=== PATIENT | female | born 1970 | race Caucasian/White ===

== ENCOUNTER 2018-10-11 20:49 | Emergency (ER) | payer BC, SELFPAY ==
--- NOTE | 2018-10-11 21:02 | ED.GENADUL_ITS ---
Discharge Plan Disposition Patient Disposition: HOME Condition: Good Discharge Details Chief Complaint: Urinary Clinical Impression: UTI (urinary tract infection), Hematuria Primary Care Provider: April Bustos ED Provider: Stef Knott Home Meds and New Rx's Prescriptions: New cephalexin 500 mg tablet 500 mg PO BID 5 Days Qty: 10 RF: 0 No Action Ventolin HFA 8 GM HFA aerosol inhaler 2 puff Inhalation Q4H PRN RF: 0 calcium carbonate-vitamin D3 1 EACH tablet 1 ea PO DAILY RF: 0 doxycycline hyclate 50 MG capsule 100 mg PO BID RF: 0 colchicine 0.6 MG capsule 0.6 mg PO DAILY RF: 0 folic acid 1 MG tablet 2 mg PO DAILY RF: 0 Florastor 250 MG capsule 500 mg PO DAILY RF: 0 loratadine [Claritin Liqui-Gel] 10 MG capsule 10 mg PO DAILY RF: 0 Flovent HFA 120 PUFF HFA aerosol inhaler 2 puff Inhalation BID RF: 0 Discharge Instructions Instructions: Urinary Tract Infection in Women (ED) Additional Instructions: Please take the medication as directed. Please drink 8-10 cups of water per day. If you notice improvement of the burning and frequency but have continued blood in your urine please follow-up with your family doctor or your urologist. If you notice any worsening of your symptoms, or any new symptoms such as vomiting, diarrhea, fever, chills, shortness of breath, chest pain, numbness, weakness, or fainting , please return immediately to the emergency department for reevaluation. Please follow up with your primary care provider as soon as possible for reassessment and reevaluation. As always, it was a pleasure participating in your medical care today. Referrals: April Bustos [Primary Care Provider] - Medical Decision Making This is a 48-year-old female with past medical history of HSP, and chronic Lyme as well as chronic/recurrent UTIs who presents today for evaluation of urinary tract infection. Last UTI was this past fall. Patient states that yesterday she had increased urgency, frequency mild dysuria. She denies any fever or chills, vital signs are reassuring. Physical exam shows no evidence of toxic appearance. No evidence of pyelonephritis clinically. We will get a urinalysis, evaluate for potential UTI. I feel that the patient signs and symptoms are clinically inconsistent with a kidney stone at this time, patient does not want anything for pain at this time. 11:29 PM. Urinalysis did show moderate hematuria. Mild evidence of potential urinary tract infection with elevated leukoesterase, and slightly elevated WBCs although this is in the setting of elevated RBCs. He has developed elevated hematuria I am concerned for potential urolithiasis as a cause of her symptoms. We did get a CT scan, results show no acute process, no evidence of stone. Patient's pain continues to be well managed. Given her dose of Keflex here, and I feel that she would benefit from treatment for potential urinary tract infection on an outpatient basis. Differential though does still include interstitial cystitis versus a mild cystitis secondary to her UTI. I discussed with the patient the importance of close follow-up, especially the importance of follow-up with urology if her hematuria. We discussed red flags which return. The patient will be discharged home. She has reassuring vital signs, shows no signs of hemodynamic compromise, and demonstrates no clinical evidence of pyelonephritis or sepsis. I have extensively reviewed the treatment plan and discharge instructions with the patient and their family. I have addressed all patient concerns at this time. The patient and family was made aware of what symptoms to monitor for that would warrant a return to the emergency department. Discussed the plan with the patient and family, they demonstrate verbal understanding and agreement with our assessment and plan at this time. COMPARISON: No relevant prior studies available. FINDINGS: Lower thorax: Unremarkable. ABDOMEN: Liver: No suspicious lesions. Gallbladder and bile ducts: Cholecystectomy. Pancreas: Unremarkable. Spleen: No suspicious lesions. Adrenals: Unremarkable. No suspicious nodule. Kidneys and ureters: Unremarkable. No hydro. No suspicious lesions. Stomach and bowel: Unremarkable. No inflammed or dilated loops. Appendix: Normal appendix. PELVIS: Bladder: Unremarkable as visualized. Reproductive: Unremarkable as visualized. ABDOMEN and PELVIS: Intraperitoneal space: No free air. No significant fluid collection. Bones/joints: No acute fracture. No dislocation. Soft tissues: Unremarkable. Vasculature: Unremarkable. Lymph nodes: Unremarkable. IMPRESSION: No acute findings. Dictated and Authenticated by: Aníbal Bullock MD. HPI General Date/Time Provider Initiated Documentation: 10/11/18 20:58 . 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 She states that yesterday she had increased urgency, increased frequency, mild dysuria, and a small amount of blood in her urine. She admits to some mild low back pain but denies any severe flank pain. She denies any acute fever or chills. She states that her symptoms are exactly the same as her previous UTIs that she has had in the past. She denies any history of kidney stones or family history of kidney stones. The pain is located in her lower pelvic region, no significant aggravating or relieving factors. Patient denies any other complaints at this time. She denies any recent surgeries, pertinent family history, Related Data Home Medications Medication Instructions Recorded Confirmed loratadine [Claritin] 10 mg PO DAILY 02/27/13 10/11/18 albuterol sulfate [Ventolin Hfa] 2 puff INHALATION Q4H PRN puff 07/13/13 10/11/18 calcium carbonate-vitamin D3 1 ea PO DAILY 07/17/14 10/11/18 fluticasone [Flovent 220MCG] 2 puff INHALATION BID 03/24/15 10/11/18 Saccharomyces boulardii [Florastor] 500 mg PO DAILY 09/16/17 10/11/18 colchicine 0.6 mg PO DAILY 09/16/17 10/11/18 doxycycline hyclate 100 mg PO BID tab-cap 09/16/17 10/11/18 folic acid 2 mg PO DAILY tab-cap 09/16/17 10/11/18 cephalexin 500 mg PO BID 5 Days #10 tab 10/11/18 Previous Rx's Medication Instructions Recorded cephalexin 500 mg PO BID 5 Days #10 tab 10/11/18 Allergies Allergy/AdvReac Type Severity Reaction Status Date / Time Sulfa (Sulfonamide Allergy Mild Hives Unverified 10/11/18 23:09 Antibiotics) Review of Systems Review of Systems All systems reviewed & are unremarkable except as noted in HPI and below PFSH Medical History Asthma Chronic headaches HSP (Henoch Schonlein purpura) Hx of gallstones Lyme disease Surgical History Breast, Lumpectomy Cervical Procedure section Cholecystectomy wisdom teeth extraction Family History Mother Diverticulitis COPD (chronic obstructive pulmonary disease) Pacemaker Father Essential hypertension Cryptococcal meningitis Hyperlipidemia Social History Smoking/Tobacco Use Status: Never Exam Narrative Exam Narrative: 1.Const: Well-nourished, Well-developed, appearing stated age 2.Eyes: PERRL, no conjunctival injection, and symmetrical lids. 3.ENT: Atraumatic external nose and ears. Moist MM. Neck: Symmetric, trachea m idline, No thyromegaly. 4.CVS: +S1/S2, No murmurs or gallops. Peripheral pulses 2+ and equal in all extremities. Brisk capillary refill in all extremities. 5.RESP: Unlabored respiratory effort. Clear to auscultation bilaterally. No wheezes rales or rhonchi 6.GI: Soft, Nontender/Nondistended, No hepatosplenomegaly. No guarding or rebound. No significant flank pain, or suprapubic pain. 7.MSK: Normocephalic/Atraumatic, Extremities w/o deformity or ttp No cyanosis or clubbing, Normal movement of all extremities 8.Skin: Warm, Dry. No rashes or lesions. 9.Neuro: palliative care specialist II-XII grossly intact. Sensation grossly intact, no focal neurologic deficits. 10.Psych: (AAO) x3. Appropriate mood and affect
[2018-10-11 21:08] VITALS: BP 123/82; PULSE 72; RESP 18; TEMP 36.8
[2018-10-11 21:22] LABS: Bilirubin Negative (Negative); Blood Large (Negative); Clarity Cloudy; Glucose Negative (Negative); Ketones Trace mg/dL (Negative); Leukocyte Esterase Small (Negative); Nitrite Negative (Negative); Specific Gravity 1.025 (1.005-1.025); Urobilinogen 0.2 EU/dL (Up TO 0.2); pH 5.5 (5-8)
[2018-10-11 21:32] LABS: Bacteria Moderate HPF (Negative); C & S Indicated? Yes; Casts Negative LPF (Negative); Crystals Negative HPF (Negative); Epithelial Cells Negative HPF (Negative); Mucus Negative (Negative); Other Cells Negative (Negative); RBC >50 (0-2)
[2018-10-11 22:17] VITALS: BP 123/82; PULSE 72; RESP 18; TEMP 36.8; O2SAT 95
[2018-10-11] MEDS: Cephalexin 500 MG CAP PO (22:30)
--- NOTE | 2018-10-11 23:05 | DI.CT_ITS ---
SYMPTOMS/DIAGNOSIS: RIGHT FLANK PAIN WITH HEMATURIA ABDOMINAL AND PELVIC CT: CT examination of the abdomen and pelvis was performed without contrast administration. Images obtained through the lung bases are unremarkable. The liver, spleen and pancreas have an unremarkable noncontrast appearance. Note is made of a previous cholecystectomy. No biliary dilatation is seen. 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 No evidence of urinary tract calcification or obstruction. Urinary bladder appears unremarkable by noncontrast criteria. Abdominal aorta is of normal diameter. No abdominal or pelvic adenopathy seen. No significant abdominal wall hernia seen. Appendix is normal. No evidence of diverticulitis or bowel obstruction. CONCLUSION: No evidence of acute intraabdominal process.
--- NOTE | 2018-10-11 23:22 | DI.VRAD_ITS ---
EXAM: CT Abdomen and Pelvis Without Contrast EXAM DATE/TIME: 10/11/2018 9:47 PM CLINICAL HISTORY: 48 years old, female; Pain; Abdominal pain; Other: Mid abd and r flank pain; Prior surgery; Surgery date: 6+ months; Surgery type: Cholecystectomy and ; Patient HX: Mid abd and r flank pain with hematuria TECHNIQUE: Axial computed tomography images of the abdomen and pelvis without contrast. All CT scans at this facility use at least one of these dose optimization techniques: automated exposure control; mA and/or kV adjustment per patient size (includes targeted exams where dose is matched to clinical indication); or iterative reconstruction. Coronal and sagittal reformatted images were created and reviewed. COMPARISON: No relevant prior studies available. FINDINGS: Lower thorax: Unremarkable. ABDOMEN: Liver: No suspicious lesions. Gallbladder and bile ducts: Cholecystectomy. Pancreas: Unremarkable. Spleen: No suspicious lesions. Adrenals: Unremarkable. No suspicious nodule. Kidneys and ureters: Unremarkable. No hydro. No suspicious lesions. Stomach and bowel: Unremarkable. No inflammed or dilated loops. Appendix: Normal appendix. PELVIS: Bladder: Unremarkable as visualized. Reproductive: Unremarkable as visualized. ABDOMEN and PELVIS: Intraperitoneal space: No free air. No significant fluid collection. Bones/joints: No acute fracture. No dislocation. Soft tissues: Unremarkable. Vasculature: Unremarkable. Lymph nodes: Unremarkable. IMPRESSION: No acute findings. Dictated and Authenticated by: Aníbal Bullock MD. Ordering:KEYSHA Finch MD
[2018-10-11] MEDS: Cephalexin 500 MG CAP 2000 MG PO (23:26)
[2018-10-11 23:28] VITALS: BP 123/82; PULSE 72; RESP 18; TEMP 36.8; O2SAT 95
== END 2018-10-11 23:32 | disposition home or self-care (01) ==
PROVIDERS: Emergency Provider Student in an Organized Health Care Education/Training Program; PCP Nurse Practitioner
DX: N39.0 Urinary tract infection, site not specified (principal); Z87.440 Personal history of urinary (tract) infections
CPT/HCPCS: 99284; 74176; 81003; 81015; 87086

== ENCOUNTER 2018-11-12 11:49 | Outpatient (REF) | payer BC, SELFPAY ==
--- NOTE | 2018-11-12 10:50 | PAPFT_PTH ---
PATIENT: Bree Ford LOC: [facility] U#:[id number] AGE/SX: 48/F ROOM: RE11/12/[address]: ILSA Elmore : 1970 BED: DIS: 11/12/2018 SPEC #: [id number] RECD: 11/12/18 18:00 STATUS: DANIA REJoelle #: [id number] JONAS: 11/12/18 10:[address]: Marcie Soriano DEPT: [facility] Cytology RECD BY: Vanessa Campuzano ENTERED: 11/12/18 18:00 SP TYPE: PAPFT OTHR DR: April Bustos Tissues: 1 - CX/ENDOCX FOR PAP SMEARS Procedures: PAP THIN PREP/UVM Screening HPV DNA PROBE Comments: [id number]
== END 2018-11-12 12:09 ==
LOC: LBN 11:49
PROVIDERS: PCP Nurse Practitioner; Visit Provider Nurse Practitioner Family
DX: Z12.4 Encounter for screening for malignant neoplasm of cervix (principal); Z11.51 Encounter for screening for human papillomavirus (HPV)
CPT/HCPCS: 88142; 87624

== ENCOUNTER 2018-11-29 00:58 | Outpatient (CLI) | payer BC, SELFPAY ==
--- NOTE | 2018-11-29 10:00 | DI.MAMMO_ITS ---
SYMPTOM/DIAGNOSIS: SCREENING, Z12.31 MAMMOGRAMS: Mammograms were interpreted according to the usual protocol including computer analysis with CAD system, tomosynthesis and C view imaging. Comparison is made with prior examinations. Breast density, category C. No suspicious masses or microcalcifications are seen. There is no definite evidence of malignancy. IMPRESSION: Negative mammogram. Routine screening is recommended. Category 1. MQSA ASSESSMENT OF FINDINGS: Negative. Category 1. Patient will receive a letter notifying them of these results. Bi-RADS category C. The breasts are heterogeneously dense, which may obscure small masses.
== END 2018-11-29 01:18 ==
PROVIDERS: PCP Nurse Practitioner; Visit Provider Nurse Practitioner Family
DX: Z12.31 Encounter for screening mammogram for malignant neoplasm of breast (principal)
CPT/HCPCS: 77063; 77067

== ENCOUNTER 2019-10-20 12:01 | Outpatient (REF) | payer BC, SELFPAY ==
[2019-10-20 19:28] LABS: ALT 68 U/L (14-59); AST 37 U/L (15-37); Alkaline Phosphatase 85 U/L (46-116); BUN 12 mg/dL (7-18); Bilirubin, Total 0.3 mg/dL (0.2-1.0); CREATININE 0.79 mg/dL (0.55-1.02); Calcium 9.3 mg/dL (8.5-10.1); Calculated LDL 91 mg/dL; Chloride 105 mmol/L (98-107); Cholesterol 142 mg/dL (<200); Glucose 89 mg/dL (74-106); HDL Cholesterol 37 mg/dL (40-60); Sodium 144 mmol/L (136-145); TSH (W/Ref FT4) 0.89 uIU/mL (0.36-3.74); Total Protein 7.1 g/dL (6.4-8.2); Triglyceride 71 mg/dL (<150)
[2019-10-20 19:42] LABS: Vitamin D 25 Total 23.5 ng/ml (30-100)
== END 2019-10-20 12:21 ==
LOC: NCHCN 12:01
PROVIDERS: PCP Nurse Practitioner; Visit Provider Nurse Practitioner
DX: Z00.00 Encounter for general adult medical examination without abnormal findings (principal); D69.0 Allergic purpura; A69.20 Lyme disease, unspecified; Z13.21 Encounter for screening for nutritional disorder; Z13.29 Encounter for screening for other suspected endocrine disorder; Z13.220 Encounter for screening for lipoid disorders
CPT/HCPCS: 80053; 80061; 82306; 84443

== ENCOUNTER 2019-12-07 02:22 | Outpatient (CLI) | payer BC, SELFPAY ==
--- NOTE | 2019-12-07 10:50 | DI.MAMMO_ITS ---
EXAM: MG MAMMO SCREENING CLINICAL HISTORY: screening Z12.39. TECHNIQUE: Bilateral full field digital CC and MLO mammographic images were obtained with 3D tomosyn thesis and utilizing computer aided detection (CAD). COMPARISON: Available for comparison. FINDINGS: Masses/Architectural Distortion: None seen. Microcalcifications: No suspicious pleomorphic-type are seen. Skin Thickening/Nipple Retraction: None. IMPRESSION: 1. No significant interval change with no specific features of malignancy noted. 2. Unless there is more urgent need, screening mammography is recommended, as per [employer] guidelines. ACR BI-RAD Category- 1 Negative Breast Density - Category B - Scattered areas of fibroglandular density A negative radiographic report should not delay biopsy if a dominant or clinically suspicious mass is present. Up to ten percent of cancers are not identified on mammography. A negative report may reinforce clinical impression. Adenosis and dense breasts may obscure an underlying neoplasm. False positive reports average 6 to 10%. Patient will receive a letter notifying them of these results.
== END 2019-12-07 02:42 ==
PROVIDERS: PCP Nurse Practitioner; Visit Provider Nurse Practitioner Family
DX: Z12.31 Encounter for screening mammogram for malignant neoplasm of breast (principal)
CPT/HCPCS: 77063; 77067

== ENCOUNTER 2020-05-08 10:15 | Emergency (ER) | payer BC, SELFPAY ==
[2020-05-08 10:20] VITALS: BP 122/65; PULSE 69; RESP 18; TEMP 36.4; O2SAT 98
--- NOTE | 2020-05-08 10:30 | DI.US_ITS ---
EXAM: US LOWER EXTREMITY VENOUS LT CLINICAL HISTORY: Long car ride, now pain and swelling TECHNIQUE: Left lower extremity venous ultrasound performed using grayscale, color-flow, and spectra l Doppler analysis. COMPARISON: No exams were available for comparison FINDINGS: The left common femoral, femoral and popliteal veins demonstrate normal compressibility, augmentation , and color Doppler. The posterior tibial veins are patent. The saphenofemoral junction is unremarka ble. There is no evidence of a Nolan cyst. The soft tissues are unremarkable. IMPRESSION: No DVT. DATA REPOSITORY:
--- NOTE | 2020-05-08 10:58 | ED.GENADUL_ITS ---
Discharge Plan Disposition Patient Disposition: HOME Condition: Stable Discharge Details Chief Complaint: Vascular Clinical Impression: Leg pain Primary Care Provider: April Bustos ED Provider: Henry Zhou Home Meds and New Rx's Prescriptions: No Action albuterol sulfate [Ventolin HFA] 8 GM HFA aerosol inhaler 2 puff Inhalation Q4H PRN RF: 0 Flovent HFA 120 PUFF HFA aerosol inhaler 2 puff Inhalation BID RF: 0 Discharge Instructions Instructions: Leg Pain (ED) Additional Instructions: Ultrasound is negative. Please watch for new or worsening symptoms and return to the ER for any concerns. I recommend cool and/or warm compresses every 2 hours for 20 minutes. Gentle stretching as tolerated. [id number] Tylenol and/or Motrin as directed for discomfort. I do recommend reaching out your primary care provider later today or tomorrow for prompt outpatient reevaluation. Medical Decision Making 49-year-old female presenting for concern of DVT. Took a long car ride on , subsequently developed some pain in her leg. Clinically I do not see any obvious swelling, erythema, warmth. Negative Homans sign. Normal capillary refill and normal pedal pulses. Will obtain ultrasound to rule out potential for DVT but very well could be soft tissue in nature or even a mild phlebitis. Ultrasound by urology as negative. Discussed ultrasound findings with patient. She has no other concerns and is comfortable discharge. Medical Records Medical records reviewed: Yes I reviewed the patient's medical records. HPI General Mode of arrival: ambulatory . Date/Time Provider Initiated Documentation: 05/08/20 10:23 . Limitations to Documentation: no limitations . Information obtained by: patient . HPI Narrative: 49-year-old female with a history of asthma, lung disease, HSP, presents to the ER for concern of left leg DVT. She reports that on she had a long car ride to and from [place], subsequently has developed some discomfort to the left upper leg. She reports the area feels slightly tight and swollen. She denies obvious trauma. Denies pain or swelling to her calf. Pain is mild at rest worse with movement or palpation. Denies history of DVT or PE. Denies redness or fever. No additional concerns or complaints. Related Data Home Medications Medication Instructions Recorded Confirmed albuterol sulfate [Ventolin Hfa] 2 puff INHALATION Q4H PRN puff 07/13/13 05/08/20 fluticasone propionate [Flovent 2 puff INHALATION BID 03/24/15 11/12/18 220MCG] Allergies Allergy/AdvReac Type Severity Reaction Status Date / Time Sulfa (Sulfonamide Allergy Mild Hives Verified 05/08/20 10:26 Antibiotics) ciprofloxacin Allergy Skin Rash Verified 05/08/20 10:26 General Stated Complaint: Vascular LUIS: 3 Review of Systems Constitutional Constitutional: Denies fever(s) and Denies weakness Cardiovascular Cardiovascular: Denies chest pain and Denies dyspnea Respiratory Respiratory: Denies cough and Denies dyspnea Musculoskeletal Musculoskeletal: Denies back pain, Denies arthralgias, Denies numbness and Denies tingling Integumentary/Breasts Skin/Breast: Denies rash Neurologic Neurologic: Denies numbness, Denies tingling and Denies weakness [facility] Medical History Asthma (Acute) environmental Chronic headaches (Resolved) HSP (Henoch Schonlein purpura) (Acute) Hx of gallstones (Resolved) Lyme disease (Acute) 11/2016 Surgical History Breast, Lumpectomy Left, 2012 Cervical Procedure abnormal pap in 1998 section 2002, 2008 Cholecystectomy 2003 wisdom teeth extraction 1986 Family History Mother , COPD at age 65. Diverticulitis COPD (chronic obstructive pulmonary disease) Pacemaker Father Essential hypertension Cryptococcal meningitis Hyperlipidemia Heart disease Heart attack, Aortic aneurysm, multiple strokes Maternal Aunt Ovarian cancer Paternal Aunt Renal cell cancer Social History Smoking/Tobacco Use Status: Never Alcohol Intake: never Drug use: Never Household members: spouse and children Number of Children: 2 current occupation: Administrative Do you feel safe at home: Yes Do you feel safe in your relationship?: Yes Female Reproductive History Menstrual Menopause type: natural History History 2 Para 2 Hx # Term Pregnancies 2 Multiple births Hx # Pregnancies Ectopic pregnancies AB induced Hx Number of Living Children 2 AB spontaneous Exam Const General: cooperative, healthy appearing, comfortable and no acute distress Orientation: alert and awake HENMT Head: normal to inspection, normocephalic and atraumatic Mouth: moist mucous membranes Eyes Conjunctivae: conjunctivae normal Neck Neck: normal visual inspection, trachea midline and supple Resp Effort & Inspection: normal respiratory effort and able to speak in complete sentences Cardio Rate: regular rate Rhythm: regular rhythm Skin General skin exam: no rashes or lesions noted Neuro General: patient alert, patient awake, moves all extremities and no focal motor deficits Gait: normal gait Sensory Exam: no sensory deficits noted Extrem General: normal to inspection, full ROM, capillary refill normal, no pedal edema and no calf tenderness Right lower extremity: normal to inspection, full ROM and normal capillary refill Left lower extremity: normal to inspection, full ROM, normal capillary refill and knee (Superior, medial aspect with mild discomfort. No erythema or warmth) Details: tenderness (Mild, superior, medial aspect); no swelling and no unusual warmth Psych Appearance: grossly normal Mental Status: mental status grossly normal Course Vital Signs Vital signs: Vital Signs Temperature 36.4 C L 05/08/20 10:20 Pulse 69 05/08/20 10:20 Respiratory Rate 18 05/08/20 10:20 Blood Pressure 122/65 05/08/20 10:20 Pulse Oximetry 98 05/08/20 10:20 Temperature 36.4 C L 05/08/20 10:20 Temperature Source Temporal Artery Scan 05/08/20 10:20 Pulse 69 05/08/20 10:20 Respiratory Rate 18 05/08/20 10:20 Respiratory Effort Non-Labored 05/08/20 10:28 Respiratory Depth Normal 05/08/20 10:28 Respiratory Pattern Irregular 05/08/20 10:28 Blood Pressure 122/65 05/08/20 10:20 Blood Pressure Position Sitting 05/08/20 10:20 Pulse Oximetry 98 05/08/20 10:20 Oxygen Delivery Method Room Air 05/08/20 10:20 Oxygen Flow Rate 0 05/08/20 10:20 Pain Level 5 05/08/20 10:28
== END 2020-05-08 12:05 | disposition home or self-care (01) ==
PROVIDERS: Emergency Provider Physician Assistant; PCP Nurse Practitioner
DX: M79.605 Pain in left leg (principal)
CPT/HCPCS: 99284; 93971

== ENCOUNTER 2020-12-19 01:25 | Outpatient (CLI) | payer BC, SELFPAY ==
--- NOTE | 2020-12-19 10:50 | DI.MAMMO_ITS ---
EXAM: MG MAMMO SCREENING CLINICAL HISTORY: screening TECHNIQUE: Bilateral full field digital CC and MLO mammographic images were obtained with 3D tomosyn thesis and utilizing computer aided detection (CAD). COMPARISON: Available for comparison. FINDINGS: Masses/Architectural Distortion: None seen. Microcalcifications: No suspicious pleomorphic-type are seen. Skin Thickening/Nipple Retraction: None. IMPRESSION: 1. No significant interval change with no specific features of malignancy noted. 2. Unless there is more urgent need, screening mammography is recommended, as per [place] guidelines. BI-RADS Category 1 - Negative Breast Density - Category B - Scattered areas of fibroglandular density Breast density category C or D implies that the patient has dense breast tissue. Dense breast tissue is very common and is not abnormal but dense breast tissue can make it harder to find cancer on a ma mmogram. Also, dense breast tissue may increase their breast cancer risk. This information about the result of the mammogram report was provided to the patient to raise their awareness. Use this report when you speak with the patient about their risks for breast cancer, which includes their family hist ory. At that time, you may recommend for more screening tests (Ultrasound or MRI) as they might be us eful based on their risk. A negative radiographic report should not delay biopsy if a dominant or clinically suspicious mass is present. Up to ten percent of cancers are not identified on mammography. A negative report may reinforce clinical impression. Adenosis and dense breasts may obscure an underlying neoplasm. False positive reports average 6 to 10%. Patient will receive a letter notifying them of these results.
== END 2020-12-19 01:45 ==
PROVIDERS: PCP Nurse Practitioner; Visit Provider Nurse Practitioner Family
DX: Z12.31 Encounter for screening mammogram for malignant neoplasm of breast (principal)
CPT/HCPCS: 77063; 77067

== ENCOUNTER 2021-09-16 16:09 | Outpatient (REF) | payer BC, SELFPAY ==
[2021-09-16 19:58] LABS: ALT 42 U/L (14-59); AST 23 U/L (15-37); Albumin 4.4 g/dL (3.4-5.0); Alkaline Phosphatase 87 U/L (46-116); Anion Gap 10.9 mmol/L (3-11); BUN 15 mg/dL (7-18); Bilirubin, Total 0.4 mg/dL (0.2-1.0); CO2 25.1 mmol/L (21.0-32.0); CREATININE 0.8 mg/dL (0.55-1.02); Calcium 9.7 mg/dL (8.5-10.1); Calculated LDL 145 mg/dL (<100); Chloride 102 mmol/L (98-107); Cholesterol 223 mg/dL (<200); Glucose 99 mg/dL (74-106); HCT 42.9 % (36.0-46.0); HDL Cholesterol 53 mg/dL (40-60); MCH 28.7 pg (27.0-33.0); MCHC 32.6 % (32.0-36.0); MCV 88.1 fL (80-95); MPV 10.9 fL (8.0-11.0); Platelet Count 265 10^3/uL (130-400); RBC 4.87 10^6/uL (3.93-5.22); RDW 12.4 % (11.7-14.6); RDW-SD 39.7 fL; Sodium 138 mmol/L (136-145); Total Protein 7.8 g/dL (6.4-8.2); Triglyceride 127 mg/dL (<150); WBC 7.11 10^3/uL (4.4-10.8)
== END 2021-09-16 16:10 | disposition home or self-care (01) ==
LOC: NCHCN 16:09
PROVIDERS: PCP Nurse Practitioner; Visit Provider Nurse Practitioner
DX: R53.83 Other fatigue (principal); R79.89 Other specified abnormal findings of blood chemistry; G43.909 Migraine, unspecified, not intractable, without status migrainosus
CPT/HCPCS: 80053; 80061; 85027

== ENCOUNTER 2021-10-08 00:41 | Outpatient (CLI) | payer BC, SELFPAY ==
--- NOTE | 2021-10-08 | ETT_ITS ---
APPROVED REPORT Exam: Exercise Treadmill Patient Location: Out-Patient Room/Bed: Stress Nurse: Luda Garcia RN Ordering Provider:HILARIO TSANG, Contact Number: [phone] BMI: 27.45 Baseline Rhythm: Sinus Rhythm Indications: Atypical chest pain Medical History Medical History: Hyperlipidemia, asthma, chronic HAs, lyme disease, henoch-schonlein purpura Cardiac Medications: Albuterol sulfate Allergies: sulfonamide antibiotics, ciprofloxarin Cardiac Risk Factors: Hyperlipidemia, asthma, family hx Previous Cardiac Procedures: None Pretest Chest Pain Characteristics: None Exercise History: Sedentary Physical Disabilities: None Lung Sounds: Clear to auscultation Heart Sounds: Regular Stress Test Details Test: Exercise stress testing was performed using a Jak protocol. Rest Stress HR Resting HR Supine: 66 bpm Max Heart Rate (APMHR): 168 bpm Resting HR Standin bpm Target HR (85% APMHR): 142 bpm Max HR Achieved: 171 bpm % of APMHR: 101 Recovery HR: 91 bpm HR response to stress: Normal HR response to stress BP Resting BP Supine: 110/78 mmHg Resting BP Standin/72 mmHg Max BP: 152/72 mmHg Recovery BP: 128/74 mmHg BP response to stress: Normal blood pressure response to stress. ECG Resting ECG: Sinus Rhythm Ectopy: None Stress ECG: Sinus Tachycardia ST Change: No significant ST segment changes noted Arrhythmia: None Recovery ECG: Sinus Rhythm Recovery ST Change: No significant ST segment changes noted Recovery Arrhythmia: None Clinical Reason for Termination: Fatigue Stress Symptoms: General Fatigue, Dyspnea Exercise duration: 10 min46 sec Highest Stage Reached: Stage 4: 4.2 mph at 16% grade. Exercise capacity: 13.07 METs Galindo Treadmill Score: 10.5 Rate Pressure Product: [id number] Stress ECG Conclusion 1. The resting electrocardiogram was within normal limits 2. Patient exercised on the Jak protocol and completed a workload of 13.07 METS, stopping due to fa tigue 3. Normal heart rate and blood pressure response to exercise. The patient achieved 101% of predicted heart rate for age 4. Electrocardiographically there was no evidence of myocardial ischemia 5. There were no significant dysrhythmias Galindo Treadmill Score is 10.5 which is Low risk. Stress Test Summary STAGE Time (mins) Speed (mph) Grade (%) HR BP SYMPTOMS METS Supine 66 110/78 Standing 91 108/72 1 3 1.7 10 109 104/68 4.6 2 6 2.5 12 122 130/68 7 3 9 3.4 14 145 144/76 10.2 4 12 4.2 16 169 12.9 1 min recovery 148 138/68 3 min recovery 98 152/72 6 min recovery 91 128/74
== END 2021-10-08 01:01 ==
PROVIDERS: PCP Nurse Practitioner; Visit Provider Nurse Practitioner
DX: R07.89 Other chest pain (principal); E78.5 Hyperlipidemia, unspecified; J45.909 Unspecified asthma, uncomplicated; Z82.49 Family history of ischemic heart disease and other diseases of the circulatory system
CPT/HCPCS: 93017

== ENCOUNTER 2022-01-14 10:01 | Outpatient (REF) | payer BC, SELFPAY ==
--- NOTE | 2022-01-14 09:30 | PAPFT_PTH ---
PATIENT: Bree Ford LOC: [facility] U#:[id number] AGE/SX: 51/F ROOM: RE01/14/[address]: ILSA Elmore : 1970 BED: DIS: 01/14/2022 SPEC #: [id number] RECD: 01/14/22 12:51 STATUS: DANIA REJoelle #: [id number] JONAS: 01/14/22 09:[address]: Marcie Soriano DEPT: [facility] Cytology RECD BY: Vanessa Campuzano ENTERED: 01/14/22 12:52 SP TYPE: PAPFT OTHR DR: April Bustos Tissues: 1 - CX/ENDOCX FOR PAP SMEARS Procedures: PAP THIN PREP/UVM Screening HPV DNA PROBE Comments: [id number]
== END 2022-01-14 10:02 | disposition home or self-care (01) ==
LOC: LBN 10:01
PROVIDERS: PCP Nurse Practitioner; Visit Provider Nurse Practitioner Family
DX: Z12.4 Encounter for screening for malignant neoplasm of cervix (principal); Z11.51 Encounter for screening for human papillomavirus (HPV)
CPT/HCPCS: 88142; 87624

== ENCOUNTER 2022-02-11 04:25 | Outpatient (CLI) | payer BC, SELFPAY ==
--- NOTE | 2022-02-11 11:13 | DI.MAMMO_ITS ---
Exam(s) MAMMO SCREENING EXAM: MAMMO SCREENING CLINICAL HISTORY: screening TECHNIQUE: Bilateral full field digital CC and MLO mammographic images were obtained with 3D tomosyn thesis and utilizing computer aided detection (CAD). COMPARISON: Available for comparison. FINDINGS: Masses/Architectural Distortion: None seen. Microcalcifications: No suspicious pleomorphic-type are seen. Skin Thickening/Nipple Retraction: None. IMPRESSION: 1. No significant interval change with no specific features of malignancy noted. 2. Unless there is more urgent need, screening mammography is recommended, as per [place] [employer] guidelines. BI-RADS Category 1 - Negative Breast Density - Category B - Scattered areas of fibroglandular density Breast density category C or D implies that the patient has dense breast tissue. Dense breast tissue is very common and is not abnormal but dense breast tissue can make it harder to find cancer on a ma mmogram. Also, dense breast tissue may increase their breast cancer risk. This information about the result of the mammogram report was provided to the patient to raise their awareness. Use this report when you speak with the patient about their risks for breast cancer, which includes their family hist ory. At that time, you may recommend for more screening tests (Ultrasound or MRI) as they might be us eful based on their risk. A negative radiographic report should not delay biopsy if a dominant or clinically suspicious mass is present. Up to ten percent of cancers are not identified on mammography. A negative report may reinforce clinical impression. Adenosis and dense breasts may obscure an underlying neoplasm. False positive reports average 6 to 10%. Patient will receive a letter notifying them of these results.
== END 2022-02-11 04:45 ==
PROVIDERS: PCP Nurse Practitioner; Visit Provider Nurse Practitioner Family
DX: Z12.31 Encounter for screening mammogram for malignant neoplasm of breast (principal)
CPT/HCPCS: 77063; 77067

== ENCOUNTER 2022-11-26 13:25 | Outpatient (REF) | payer BC, SELFPAY ==
[2022-11-26 16:16] LABS: ALT 34 U/L (14-59); AST 27 U/L (15-37); Albumin 4.6 g/dL (3.4-5.0); Alkaline Phosphatase 88 U/L (46-116); Anion Gap 8.3 mmol/L (3-11); BUN 11 mg/dL (7-18); Bilirubin, Total 0.6 mg/dL (0.2-1.0); CO2 28.7 mmol/L (21.0-32.0); CREATININE 0.8 mg/dL (0.55-1.02); Calcium 10.3 mg/dL (8.5-10.1); Calculated LDL 141 mg/dL (<100); Chloride 102 mmol/L (98-107); Cholesterol 224 mg/dL (<200); Estimated GFR 88.05 (mL/min/1.73m2); Glucose 96 mg/dL (74-106); HDL Cholesterol 65 mg/dL (40-60); Potassium 4.6 mmol/L (3.5-5.1); Sodium 139 mmol/L (136-145); TSH (W/Ref FT4) 0.65 uIU/mL (0.36-3.74); Triglyceride 94 mg/dL (<150); Vitamin B12 537 pg/mL (193-986)
== END 2022-11-26 13:26 | disposition home or self-care (01) ==
LOC: NCHCN 13:25
PROVIDERS: PCP Nurse Practitioner; Visit Provider Nurse Practitioner Family
DX: Z00.00 Encounter for general adult medical examination without abnormal findings (principal); E78.5 Hyperlipidemia, unspecified; R53.83 Other fatigue; M79.10 Myalgia, unspecified site; R79.89 Other specified abnormal findings of blood chemistry; E55.9 Vitamin D deficiency, unspecified
CPT/HCPCS: 80053; 80061; 82306; 82607; 84443

== ENCOUNTER 2023-02-13 00:10 | Outpatient (CLI) | payer BC, SELFPAY ==
--- NOTE | 2023-02-13 11:45 | DI.MAMMO_ITS ---
Exam(s) MAMMO SCREENING EXAM: MAMMO SCREENING CLINICAL HISTORY: screening TECHNIQUE: Mammograms were interpreted according to the usual protocol including computer analysis w [employer] CAD system, tomosynthesis and C-view imaging. COMPARISON: 2012 through 2021 FINDINGS: The breasts are composed of scattered fibroglandular densities, Breast Density category B. No suspicious masses or suspicious microcalcifications are seen. No skin thickening or abnormal axillary lymph nodes are seen. There has been no significant change from prior exams. IMPRESSION: BI-RADS Category 1, Negative mammogram Yearly screening mammography is recommended. Breast Density - Category B, scattered fibroglandular densities. A negative radiographic report should not delay biopsy if a dominant or clinically suspicious mass is present. Up to ten percent of cancers are not identified on mammography. A negative report may reinforce clinical impression. Adenosis and dense breasts may obscure an underlying neoplasm. False positive reports average 6 to 10%. Patient will receive a letter notifying them of these results.
== END 2023-02-13 00:30 ==
LOC: DI 00:10
PROVIDERS: PCP Nurse Practitioner Family; Visit Provider Obstetrics & Gynecology
DX: Z12.31 Encounter for screening mammogram for malignant neoplasm of breast (principal)
CPT/HCPCS: 77063; 77067

== ENCOUNTER 2023-12-20 23:32 | Emergency (ER) | payer BC, SELFPAY ==
[2023-12-20 23:36] VITALS: O2SAT 96
--- NOTE | 2023-12-20 23:36 | ED.GENADUL_ITS ---
Discharge Plan Disposition Patient Disposition: Home Discharge Details Clinical Impression: Nausea & vomiting Primary Care Provider: ROME RAMIREZ ED Provider: Yobani Hastings Home Meds and New Rx's Prescriptions: Continued amoxicillin-pot clavulanate 875-125 mg tablet 1 tab PO Q12H Qty: 14 0RF benzonatate 100 mg capsule 100 mg PO TID PRN (Reason: cough) Qty: 14 0RF fluticasone propionate [Flovent HFA] 220 mcg/actuation HFA aerosol inhaler 1 puff inhalation BID Zyrtec 10 mg capsule 10 mg PO DAILY PRN albuterol sulfate [Ventolin HFA] 8 GM HFA aerosol inhaler 2 puff Inhalation Q4H PRN Discharge Instructions Instructions: Acute Nausea and Vomiting (ED) Additional Instructions: You were seen in the emergency department for your nausea and vomiting. Your blood work shows that your kidneys are working well and you have no sign of heart attack. As we discussed, please take these nausea pills as directed. Please follow-up with your primary care provider next week. Please return to the emergency department if you develop chest pain cannot eat or drink as result of nausea or vomiting or develop any areas of weakness. For your pain please take medications as follows: 1. Take acetaminophen (Tylenol), 1,000 mg (two 500 mg tabs) every 6 hours [2. Take ibuprofen (Advil), 400 mg every 6 hours.] Discharge Data Discharge Date/Time-TO BE ENTERED AT DEPARTURE: 12/21/23 03:29 HPI General Date/Time Provider Initiated Documentation: 12/20/23 23:36 . HPI Narrative: MDM This is an overall very well-appearing afebrile and not tachycardic 53-year-old female with sudden onset nausea and dizziness concerning for the possibility of ACS for which patient will undergo ECG and troponin testing. No pain out of proportion to suggest necrotizing soft tissue infection. No sudden onset headache to suggest subarachnoid hemorrhage. Neurologically intact so my suspicion is low for CVA so no indication for MRI I did not feel that the patient would be a tPA candidate. No flank pain to suggest ureterolithiasis. No dysuria nor frequency to suggest UTI. Patient does have mildly elevated BMI and as result pancreatitis is still a possibility that the patient is not an alcoholic but will obtain lipase. Not recently to suggest splenic arterial aneurysm. It is certainly also possible that the patient has contracted her son's recent gastroenteritis. No left lower quadrant tenderness nor history of diarrhea nor fevers to suggest diverticulitis. No right lower quadrant tenderness to suggest appendicitis. No dysuria nor frequency to suggest UTI. No shortness of breath to suggest PE and patient is neither tachycardic nor hypoxic. Patient has had abdominal surgeries in the past however had a normal bowel movement this morning and only vomited once so my suspicion is exceedingly low for SBO. Given that the patient's symptoms began following a turn in her head it is certainly possible that she could also have benign paroxysmal vertigo. No right upper quadrant tenderness and remote prior history of cholecystectomy so doubt acute cholecystitis. She has no nystagmus to suggest benefit from hints exam and no truncal ataxia so my suspicion for posterior circulation is exceedingly low so I did perform HINTS exam. Patient has no history of AAA and has no pulsatile mass so my suspicion for ruptured AAA is exceedingly low. Will proceed with troponin testing, comprehensive metabolic panel and CBC with ondansetron, 500 cc of crystalloid, and famotidine. 12:20 PM CBC lacks anemia thrombocytopenia and leukocytosis.Negative initial troponin. Reassuring normal lipase. Comprehensive metabolic panel showing no SANTO. No LFT abnormalities. No acute electrolyte abnormalities. Mild hyperglycemia but normal bicarbonate and no anion gap??not consistent with DKA. I considered performing Joel-Hallpike maneuver to diagnose BPPV however in the setting of the patient's improved symptoms will defer this provocative maneuvers at this point in time. 3:30 AM Repeat troponin negative. Patient felt improved in the ED. We discussed return indications including any chest pain any syncope or any inability to tolerate p.o. I sent patient home with a short course of as needed ondansetron. She understood her return indications. I advised PCP follow-up as needed next week. Will proceed with empiric trial of expectant outpatient management. Chronic conditions affecting the care of the patient: HSP History obtained from an outside historian: N/A External record review: [facility] EMR Diagnostic interpretations performed by me: Per my independent interpretation chest x-ray shows: No acute cardiopulmonary process Per my independent interpretation EKG shows: Narrow complex normal sinus rhythm at a rate of 61. Left axis deviation no signs of LVH. No ST segment abnormalities. T wave flattening in the inferior leads. No prior for comparison. No acute injury pattern. ]Medications: Famotidine ondansetron Social determinants of health affecting disposition: N/A Management discussed with: N/A Treatment/interventions considered: N/A Response to therapies provided: Improved symptoms in the ED following treatment HPI This is a 53-year-old female with history of HSP and Lyme disease arrived to the emergency department via private vehicle in the setting of nausea vomiting and dizziness. She said that her symptoms began at approximately 930 p.m. this evening. Patient reports that her son had a gastroenteritis for several weeks recently. Patient was reportedly eating some rotisserie chicken this evening at 8:30 PM. The chicken reportedly did not taste good. No one else ate the chicken. At approximately 9:30 PM she rolled over on the couch and suddenly became nauseous and dizzy. She vomited once. She had used her Flonase and Afrin earlier today. She had a normal bowel movement earlier today. She has remotely had 2 sections and a cholecystectomy. She denies chest pain shortness of breath. Family history negative for any significant premature coronary artery disease. Patient denies hypertension hyperlipidemia and diabetes. Patient denies routine tobacco, ethanol, and illicits. No prior history of similar symptoms. No recent falls. No history of ureterolithiasis. No history of dysuria nor frequency. No diarrhea. No fevers. Was in usual state of health earlier today. Exam General: Well-appearing in no acute distress speaking in complete sentences. Head: Normocephalic, atraumatic. Eye: Extraocular eye movements intact. No conjunctival injection. No scleral icterus. Ear, nose, mouth, throat: Grossly normal inspection. Normal voice, handling secretions normally. Neck: Trachea midline. Cardiovascular: Well-perfused distal extremities. Regular rate and rhythm Respiratory: Nonlabored respiration. Clear lungs bilaterally Gastrointestinal: Nondistended abdomen. Soft nontender. No rebound. No guarding. Musculoskeletal: No edema. Moving all 4 extremities spontaneously. Skin: Normal for age and race, grossly normal temperature and turgor. No acute rash. Neurologic: Alert and appropriate, no apparent acute deficits. No nystagmus. Cranial nerves II through XII intact grossly. GCS 15 Psychiatric: Mood and manner are appropriate. Grooming and personal hygiene are appropriate. Related Data Home Medications Medication Instructions Recorded Confirmed albuterol sulfate 90 mcg/actuation 2 puff inhalation Q4H PRN 07/13/13 07/16/23 aerosol inhaler (Ventolin HFA) cetirizine 10 mg capsule (Zyrtec) 10 mg PO DAILY PRN 01/16/23 07/16/23 fluticasone propionate 220 1 puff inhalation BID 01/16/23 07/16/23 mcg/actuation HFA aerosol inhaler (Flovent HFA) amoxicillin 875 mg-potassium 1 tab PO Q12H #14 tabs 07/16/23 07/16/23 clavulanate 125 mg tablet benzonatate 100 mg capsule 100 mg PO TID PRN cough #14 caps 07/16/23 07/16/23 Previous Rx's Medication Instructions Recorded amoxicillin 875 mg-potassium 1 tab PO Q12H #14 tabs 07/16/23 clavulanate 125 mg tablet benzonatate 100 mg capsule 100 mg PO TID PRN cough #14 caps 07/16/23 Allergies Allergy/AdvReac Type Severity Reaction Status Date / Time Sulfa (Sulfonamide Allergy Mild Hives Verified 07/16/23 10:38 Antibiotics) ciprofloxacin Allergy Skin Rash Verified 07/16/23 10:38 General LUIS: 3 Medical Decision Making Quality:SDOH Health Related Social Needs: No Data to Display PFSH All Active Problems (Updated 12/21/23 @ 02:31 by Yobani Hastings MD) Nausea & vomiting (Acute) HSP (Henoch Schonlein purpura) (Acute) Lyme disease (Acute) 11/2016 Asthma (Acute) environmental Menopausal and female climacteric states (Acute) Medical History (Updated 12/21/23 @ 02:31 by Yobani Hastings MD) Hx of gallstones Chronic headaches Surgical History wisdom teeth extraction 1987 section 2002, 2009 Cholecystectomy 2004 Cervical Procedure abnormal pap in 1998 Breast, Lumpectomy Left, 2012 Family History Mother , COPD at age 65. Diverticulitis COPD (chronic obstructive pulmonary disease) Pacemaker Father Essential hypertension Cryptococcal meningitis Hyperlipidemia Heart disease Heart attack, Aortic aneurysm, multiple strokes Maternal Aunt Ovarian cancer Paternal Aunt Renal cell cancer Social History Smoking/Tobacco Use Status: Never Smoking risk assessment performed?: Yes Alcohol Intake: never Drug use: Never Household members: spouse and children Number of Children: 2 current occupation: Administrative Do you feel safe at home: Yes Do you feel safe in your relationship?: Yes Female Reproductive History Menstrual Age of Menarche: 11 Menopause type: natural History History 2 Para 2 Hx # Term Pregnancies 2 Multiple births Hx # Pregnancies Ectopic pregnancies AB induced Hx Number of Living Children 2 AB spontaneous Past Pregnancies Del. Date GA/Weeks # Preg Succ Route Wgt Sex Labor Lgth Anesth esia Location Prov Complic 04/19/03 3175.147 g Female [place], [place] 03/31/09 3175.147 g Male [place], [place] Delivery Date: 04/19/03 Last Updated by: Cinda Grove Delivery Date: 03/31/09 Last Updated by: Cinda Leiva
[2023-12-20 23:37] VITALS: O2SAT 98
[2023-12-20 23:38] VITALS: BP 143/82; PULSE 59
[2023-12-20 23:40] VITALS: BP 143/82; PULSE 96; RESP 16; TEMP 36.4; O2SAT 96
--- NOTE | 2023-12-20 23:45 | RT.EKG_ITS ---
APPROVED REPORT Exam: Resting ECG Reason for Exam: Nausea and vomiting Patient Location: E HR:61 bpm ECG Measurements Heart Rate 61 AXIS WY 187 P 44 QRSd 84 QRS -37 QT 429 T [id number] QTc 431 Conclusion Sinus rhythm...normal P axis, V-rate 60- 99 Left axis deviation...QRS axis (-30,-90) Narrow complex normal sinus rhythm at a rate of 61. Left axis deviation no signs of LVH. No ST segm ent abnormalities. T wave flattening in the inferior leads. No prior for comparison. No acute inju ry pattern.
[2023-12-21 00:11] LABS: Abs Immature Grans 0.02 10^3/uL (0.0-0.06); Absolute Basophil Count 0.08 10^3/uL (0.0-0.2); Absolute Monocyte Count 0.57 10^3/uL (0.1-0.8); Absolute Neutrophil Count 3.51 10^3/uL (1.2-6.7); Basophils % 1.1; Eosinophils % 8.5; HCT 41.2 % (36.0-46.0); HGB 13.9 g/dL (11.2-15.7); Immature Grans % 0.3; Lymphocytes % 32.5; MCH 28.3 pg (27.0-33.0); MCHC 33.7 % (32.0-36.0); MCV 84 fL (80-95); Monocytes % 8.1; Neutrophils % 49.5; Platelet Count 225 10^3/uL (130-400); RBC 4.91 10^6/uL (3.93-5.22); RDW 12.4 % (11.7-14.6); WBC 7.08 10^3/uL (4.4-10.8)
[2023-12-21] MEDS: Ondansetron 4 MG/2 ML VIAL IVP (00:15)
[2023-12-21] MEDS: Famotidine 20 MG/2 ML VIAL 40 MG IVP (00:15)
[2023-12-21] MEDS: Normal Saline 500 ML IV (00:15)
[2023-12-21 00:32] LABS: ALT 29 U/L (14-59); AST 19 U/L (15-37); Albumin 3.9 g/dL (3.4-5.0); Alkaline Phosphatase 81 U/L (46-116); BUN 16 mg/dL (7-18); Bilirubin, Total 0.3 mg/dL (0.2-1.0); CREATININE 0.9 mg/dL (0.55-1.02); Calcium 9.3 mg/dL (8.5-10.1); Chloride 103 mmol/L (98-107); Estimated GFR 75.97 (mL/min/1.73m2); Glucose 110 mg/dL (74-106); Lipase 38 U/L (16-77); Potassium 3.6 mmol/L (3.5-5.1); Sodium 140 mmol/L (136-145); Total Protein 7.5 g/dL (6.4-8.2); Troponin I < 50 ng/L (< or =60)
--- NOTE | 2023-12-21 01:02 | DI.VRAD_ITS ---
PROCEDURE INFORMATION: Exam: XR Chest Exam date and time: 12/21/2023 12:22 AM Age: 53 years old Clinical indication: Other: Nausea, vomiting TECHNIQUE: Imaging protocol: Radiologic exam of the chest. Views: 1 view. COMPARISON: No relevant prior studies are available for comparison. FINDINGS: Lungs: No focal consolidation seen. Pleural spaces: No large pleural effusion seen. Heart/Mediastinum: No cardiomegaly. Bones/joints: Grossly unremarkable. IMPRESSION: No acute findings to explain reported symptoms. Dictated and Authenticated by: Debra Daigle MD. Ordering:CATHLEEN Hilton MD
[2023-12-21 01:10] VITALS: BP 121/86; PULSE 68; RESP 18; O2SAT 99
[2023-12-21] MEDS: Meclizine 25 MG TAB PO (01:33)
[2023-12-21] MEDS: Ketorolac 15 MG/ML VIAL IVP (01:43)
[2023-12-21] MEDS: Acetaminophen 500 MG TAB 1000 MG PO (01:43)
[2023-12-21] MEDS: Ondansetron O.D.T. 4 MG TABEF, 3 TABS/BTL PO (02:59)
[2023-12-21 03:17] LABS: Troponin I < 50 ng/L (< or =60)
[2023-12-21 03:18] VITALS: BP 125/76; PULSE 78; RESP 18; TEMP 36.4; O2SAT 99
--- NOTE | 2023-12-21 23:52 | DI.RAD_ITS ---
Exam(s) XR CHEST 1V IN DI DEPT EXAM: XR CHEST 1V IN DI DEPT CLINICAL HISTORY: Nausea vomiting TECHNIQUE: 2D digital imaging was performed. One-view portable COMPARISON: CR CHEST 2 VIEWS PA,LAT from 02/27/2013 FINDINGS: LUNGS: Clear. No pleural abnormality seen. HEART: Normal size. AORTA: Normal diameter. BONES: Unremarkable for age. Soft tissues: Unremarkable. IMPRESSION: No acute findings. DATA REPOSITORY: RADIATION DOSE DELIVERED:
== END 2023-12-21 03:29 | disposition home or self-care (01) ==
LOC: ER 12-21 04:32
PROVIDERS: Emergency Provider Emergency Medicine; PCP Nurse Practitioner Family
DX: R42 Dizziness and giddiness (principal); R11.2 Nausea with vomiting, unspecified
CPT/HCPCS: 80053; 83690; 93005; 96361; 96374; 96375; 99285; 71045; 84484; 85025; 93010; 99284; J1885; J2405

== ENCOUNTER → 2024-02-24 04:12 | Outpatient (CLI) | payer BC, SELFPAY ==
--- NOTE | 2024-02-24 07:00 | DI.MAMMO_ITS ---
Exam(s) MAMMO SCREENING EXAM: MAMMO SCREENING CLINICAL HISTORY: screening,z12.31 TECHNIQUE: Mammograms were interpreted according to the usual protocol including computer analysis w [employer] CAD system, tomosynthesis and C-view imaging. COMPARISON: 2013 through 2022 FINDINGS: The breasts are composed of scattered fibroglandular densities, Breast Density category B. No suspicious masses or suspicious microcalcifications are seen. No skin thickening or abnormal axillary lymph nodes are seen. There has been no significant change from prior exams. IMPRESSION: BI-RADS Category 1, Negative mammogram Yearly screening mammography is recommended. Breast Density - Category B, scattered fibroglandular densities. A negative radiographic report should not delay biopsy if a dominant or clinically suspicious mass is present. Up to ten percent of cancers are not identified on mammography. A negative report may reinforce clinical impression. Adenosis and dense breasts may obscure an underlying neoplasm. False positive reports average 6 to 10%. Patient will receive a letter notifying them of these results.
== END ==
PROVIDERS: PCP Nurse Practitioner Family; Visit Provider Obstetrics & Gynecology
DX: Z12.31 Encounter for screening mammogram for malignant neoplasm of breast (principal)
CPT/HCPCS: 77063; 77067

== ENCOUNTER 2024-03-15 15:47 | Outpatient (REF) | payer BC, SELFPAY ==
[2024-03-15 18:55] LABS: Abs Immature Grans 0.01 10^3/uL (0.0-0.06); Absolute Basophil Count 0.05 10^3/uL (0.0-0.2); Absolute Eosinophil Count 0.35 10^3/uL (0.0-0.7); Absolute Lymphocyte Count 1.83 10^3/uL (1.2-3.4); Absolute Monocyte Count 0.35 10^3/uL (0.1-0.8); Absolute Neutrophil Count 2.44 10^3/uL (1.2-6.7); HCT 41.9 % (36.0-46.0); Immature Grans % 0.2 %; Lymphocytes % 36.4 %; MCH 28.7 pg (27.0-33.0); MCHC 33.4 % (32.0-36.0); MCV 86 fL (80-95); Neutrophils % 48.4 %; Platelet Count 247 10^3/uL (130-400); RBC 4.88 10^6/uL (3.93-5.22); RDW 12.5 % (11.7-14.6); RDW-SD 39.5 fL; WBC 5.03 10^3/uL (4.4-10.8)
[2024-03-15 19:46] LABS: ALT 35 U/L (14-59); AST 19 U/L (15-37); Albumin 4.1 g/dL (3.4-5.0); Alkaline Phosphatase 78 U/L (46-116); Anion Gap 4.2 mmol/L (3-11); BUN 17 mg/dL (7-18); Bilirubin, Total 0.2 mg/dL (0.2-1.0); CO2 26.8 mmol/L (21.0-32.0); CREATININE 0.9 mg/dL (0.55-1.02); Calcium 9.7 mg/dL (8.5-10.1); Calculated LDL 143 mg/dL (<100); Chloride 106 mmol/L (98-107); Cholesterol 235 mg/dL (<200); Estimated GFR 75.97 (mL/min/1.73m2); Glucose 105 mg/dL (74-106); HDL Cholesterol 59 mg/dL (40-60); Sodium 137 mmol/L (136-145); TSH (W/Ref FT4) 0.68 uIU/mL (0.36-3.74); Total Protein 7.5 g/dL (6.4-8.2); Triglyceride 168 mg/dL (<150)
[2024-03-15 20:02] LABS: Bilirubin Negative (Negative); Blood Trace-intact (Negative); Clarity Clear (Clear); Glucose Negative (Negative); Ketones Negative (Negative); Leukocyte Esterase Negative (Negative); Nitrite Negative (Negative); Specific Gravity >= 1.030 (1.005-1.025); Urobilinogen 0.2 mg/dL (Up to 0.2); pH 5.5 (5-8)
[2024-03-15 20:08] LABS: Bacteria Rare HPF (Negative); C & S Indicated? No; Casts Negative LPF (Negative); Crystals Negative HPF (Negative); Epithelial Cells Rare HPF (Negative); Mucus Negative (Negative); RBC 0-2 HPF (0-2); WBC Negative HPF (0-5)
[2024-03-15 20:47] LABS: COMMENT (LAB VIEW ONLY) 46.56 mg/dL; Microalb ug/mg Crea 4.7 ug/mg Cr
== END 2024-03-15 15:48 | disposition home or self-care (01) ==
LOC: NCHCN 15:47
PROVIDERS: PCP Nurse Practitioner Family; Visit Provider Nurse Practitioner Family
DX: Z00.00 Encounter for general adult medical examination without abnormal findings (principal)
CPT/HCPCS: 80053; 80061; 81003; 81015; 82043; 82570; 84443; 85025

== ENCOUNTER 2025-03-14 01:44 | Outpatient (CLI) | payer BC, SELFPAY ==
--- NOTE | 2025-03-14 12:00 | DI.MAMMO_ITS ---
Exam(s) MAMMO SCREENING EXAM: MAMMO SCREENING CLINICAL HISTORY: screening. TECHNIQUE: Bilateral full field digital CC and MLO mammographic images were obtained with 3D tomosyn thesis and utilizing computer aided detection (CAD). COMPARISON: Prior mammograms were reviewed. FINDINGS: There has been no significant change in the appearance and distribution of the fibroglandular tissue. There are no CAD designations. There are benign-appearing nodules in the right breast which appear relatively stable when compared t o mammograms dating back to 2019. Asymmetric density centrally in left breast is also unchanged from 2019. Small nodular density laterally in the left breast is also unchanged from prior mammograms. There are no new spiculated masses nor new malignant-appearing microcalcification groups in either br east. There is no significant architectural distortion nor skin thickening-retraction. IMPRESSION: Stable benign-appearing bilateral findings. No radiographic evidence of malignancy. BI-RADS Category 2 - Benign Findings Breast Density - Category B - There are scattered areas of fibroglandular density. Breast density Category C or D implies that the patient has dense breast tissue. Dense breast tissue can make it harder to find cancer on a mammogram. Dense breast tissue is also associated with an incr eased risk of breast cancer. This information about the result of the mammogram report was provided to the patient to raise their awareness. Use this report when you speak with the patient about their risks for breast cancer, which includes their family history. At that time, you may recommend additional screening tests (Ultrasoun d or MRI) as these tests may add significant information. A negative radiographic report should not delay biopsy if a dominant or clinically suspicious mass is present. Up to ten percent of cancers are not identified on mammography. A negative report may reinforce clinical impression. Adenosis and dense breasts may obscure an underlying neoplasm. False positive reports average 6 to 10%. Patient will receive a letter notifying them of these results.
== END 2025-03-14 02:04 ==
LOC: DI 01:44
PROVIDERS: PCP Nurse Practitioner Family; Visit Provider Obstetrics & Gynecology
DX: Z12.31 Encounter for screening mammogram for malignant neoplasm of breast (principal); R92.323 Mammographic fibroglandular density, bilateral breasts; D24.1 Benign neoplasm of right breast
CPT/HCPCS: 77063; 77067

== ENCOUNTER 2025-04-04 14:28 | Outpatient (REF) | payer BC, SELFPAY ==
[2025-04-04 15:42] LABS: Abs Immature Grans 0.02 10^3/uL (0.0-0.06); Absolute Basophil Count 0.06 10^3/uL (0.0-0.2); Absolute Eosinophil Count 0.41 10^3/uL (0.0-0.7); Absolute Lymphocyte Count 1.87 10^3/uL (1.2-3.4); Absolute Neutrophil Count 3.14 10^3/uL (1.2-6.7); Eosinophils % 6.9 %; HCT 43.1 % (36.0-46.0); HGB 14.1 g/dL (11.2-15.7); Immature Grans % 0.3 %; Lymphocytes % 31.7 %; MCH 28.3 pg (27.0-33.0); MCHC 32.7 % (32.0-36.0); MCV 86 fL (80-95); MPV 10.9 fL (8.0-11.0); Monocytes % 6.8 %; Neutrophils % 53.3 %; Platelet Count 249 10^3/uL (130-400); RBC 4.99 10^6/uL (3.93-5.22); RDW 12.2 % (11.7-14.6); RDW-SD 38.6 fL
[2025-04-04 16:04] LABS: ALT 50 U/L (14-59); AST 26 U/L (15-37); Albumin 4.3 g/dL (3.4-5.0); Alkaline Phosphatase 89 U/L (46-116); Anion Gap 11.1 mmol/L (3-11); BUN 14 mg/dL (7-18); Bilirubin, Total 0.5 mg/dL (0.2-1.0); CO2 25.9 mmol/L (21.0-32.0); CREATININE 0.8 mg/dL (0.55-1.02); Calcium 9.5 mg/dL (8.5-10.1); Calculated LDL 128 mg/dL (<100); Chloride 103 mmol/L (98-107); Cholesterol 224 mg/dL (<200); Estimated GFR 86.96 (mL/min/1.73m2); Glucose 99 mg/dL (74-106); HDL Cholesterol 55 mg/dL (>or=50); Potassium 4.2 mmol/L (3.5-5.1); Sodium 140 mmol/L (136-145); TSH 0.71 uIU/mL (0.36-3.74); Total Protein 7.8 g/dL (6.4-8.2); Triglyceride 208 mg/dL (<150)
== END 2025-04-04 14:29 | disposition home or self-care (01) ==
LOC: NCHCN 14:28
PROVIDERS: PCP Nurse Practitioner Family; Visit Provider Nurse Practitioner Family
DX: Z00.00 Encounter for general adult medical examination without abnormal findings (principal)
CPT/HCPCS: 80053; 80061; 84443; 85025